=== PATIENT | male | born 1990 | race Caucasian/White ===

== ENCOUNTER 2018-11-03 15:38 | Emergency (ER) | payer OTHER ==
[2018-11-03] MEDS ORDERED: CEPHALEXIN 500 MG CAP PO ONE (16:39)
[2018-11-03] MEDS ORDERED: TDAP ADULT 0.5 ML INJ (BOOSTRIX) IM ONE (16:39)
--- NOTE | 2018-11-03 17:13 | EDPHY ---
H & P Stated Complaint: R farias lac cut on tree branch this afternoon Time Seen by Provider: 11/03/18 16:53 HPI/ROS: HPI: This is a 28-year-old male who presents with Chief Complaint: R farias lac cut on tree branch this afternoon the Location: Right lower leg Quality: Laceration Duration: Several hours prior to arrival Signs and Symptoms: No bleeding, no radiation, no numbness, no weakness, no tingling, no incontinence, no decreased range of motion, no swelling, +pain, no fever Timing: Acute Severity: [id number] Context: Patient reports that he was using a chain saw cutting trees to clear for his friend's house to be belt when the tree fell and hit another tree kicking backing hitting his right anterior lower leg. He reports that the tree "skipped up his leg." Patient reports that he did cut through his pants with the tree limb. Ambulatory without any deficits. Denies radiation, weakness, decreased range of motion, paresthesias. Unsure of tetanus status. Modifying Factors: Applied direct pressure to stop smoking. Comment: ROS: A comprehensive 10 system review of systems is otherwise negative aside from elements mentioned in the history of present illness. MEDICAL/SURGICAL/SOCIAL HISTORY: Medical history: Generally healthy. Does not take any regular medications. Surgical history: Denies Social history: Marijuana user. Never smoked. CONSTITUTIONAL: Extremely anxious adult white male who courses liberally. awake and alert, no obvious distress HEENT: Atraumatic and normocephalic. NECK: supple, no midline tenderness Cardiovascular: Normal S1/S2, regular rate, regular rhythm, without murmur rub or gallop. PULMONARY/CHEST: Symmetrical and nontender. Clear to auscultation bilaterally. Good air movement. No accessory muscle usage. ABDOMEN: Soft, nondistended, nontender EXTREMITIES: 2/2 pulses, strength 5/5, right anterior farias mid portion shows a cm by 1-2 cm vertical laceration with no active bleeding. Knee and ankle have full range of motion. Good plantar and dorsiflexion. DIP/PIP/MCP flexion/ extension intact with good light touch sensation. no deformities, no clubbing, no cyanosis or edema. NEUROLOGICAL: no focal neuro deficits. GCS 15. Light touch sensation intact. SKIN: Warm and dry, no erythema. no rash. Good capillary refill. Source: Patient Exam Limitations: No limitations - Personal History Current Tetanus/Diphtheria Vaccine: Unsure Current Tetanus Diphtheria and Acellular Pertussis (TDAP): Unsure - Medical/Surgical History Hx Asthma: No Hx Chronic Respiratory Disease: No Hx Diabetes: No Hx Cardiac Disease: No Hx Renal Disease: No Hx Cirrhosis: No Hx Alcoholism: No Hx HIV/AIDS: No Hx Splenectomy or Spleen Trauma: No Other PMH: denies - Social History Smoking Status: Never smoked Constitutional: Initial Vital Signs Temperature (C) 36.5 C 11/03/18 15:43 Heart Rate 91 11/03/18 15:43 Respiratory Rate 18 11/03/18 15:43 Blood Pressure 103/58 L 11/03/18 15:43 O2 Sat (%) 99 11/03/18 15:43 O2 Delivery Mode Room Air Allergies/Adverse Reactions: No Known Allergies Allergy (Unverified 11/03/18 15:43) Home Medications: Medication Instructions Recorded Cephalexin [Keflex (*)] 500 mg PO TID #21 cap 11/03/18 Medical Decision Making - Diagnostics Imaging Results: Imaging Impressions Tibia/Fibula X-Ray 11/03/18 16:39 Impression: Soft tissue laceration in the medial calf, with no radiopaque foreign body or acute osseous abnormality. Procedures: Procedure: Laceration repair. Verbal consent was obtained from the patient. The 8 cm by 2 cm, deep, simple laceration on the right anterior lower leg was anesthetized in the usual fashion using 12 mL of 1% lidocaine with epinephrine The wound was irrigated, draped and explored to its base with a gloved finger. There were no deep structures involved. No tendon injury was identified. The wound was repaired with #10, 4-0 Prolene in simple interrupted pattern. Good hemostasis was achieved and patient tolerated procedure relatively well. Xeroform and clean sterile dressing applied. The procedure was performed by myself. ED Course/Re-evaluation: Vital signs reviewed and stable upon arrival. Tetanus booster given Local anesthesia provided and copiously irrigated Right lower leg x-ray ordered and my read via bedside imaging shows no fracture but does show soft tissue injury Laceration closed with #10 nonabsorbable sutures Given Keflex due to dirty exposure. Xeroform and clean sterile dressing applied Verbal and written wound care instructions provided. No signs of neurovascular compromise/tenting of skin/compartment syndrome/ extremities and joints examined above and below area of concern and are neurovascularly intact. This patient was seen under the supervision of my secondary supervising physician. I evaluated care for this patient independently. Discussed this patient with Dr. Evans who did not see the patient. Differential Diagnosis: Differential diagnosis includes but is not limited to laceration, tendon injury , nerve injury, foreign body, fracture. - Data Points Medications Given: Discontinued Medications Cephalexin HCl (Keflex) 500 mg PO EDNOW ONE PRN Reason: Protocol Stop: 11/03/18 16:40 Last Admin: 11/03/18 16:46 Dose: 500 mg Diphtheria/Tetanus/Acell Pertussis (Boostrix) 0.5 ml IM .ONCE ONE Stop: 11/03/18 16:40 Last Admin: 11/03/18 16:46 Dose: 0.5 ml Departure - Departure Disposition: Home, Routine, Self-Care Clinical Impression: Laceration of right lower leg without complication Qualifiers: Encounter type: initial encounter Qualified Code(s): S81.811A - Laceration without foreign body, right lower leg, initial encounter Condition: Good Instructions: Care For Your Stitches (ED), Laceration (ED) Additional Instructions: Keep the dressing dry and in place for 48 hours. After 48 hours, you may remove the dressing; wash the site daily with mild soap and water; then pat dry. Take Tylenol 650 mg every 4 hours and/or Ibuprofen 600 mg every 8 hours with food as needed for pain. Apply ice for 30 minutes at a time; 2-3 times per day for the next 1-2 days. Take antibiotic as directed. Do not skip a dose. The x-rays obtained in the emergency department today demonstrate no evidence of an obvious fracture. Wound Care Follow-Up: Removal of sutures in [10-14] days. Suture removal is complimentary in uncomplicated cases. Infection or abnormal findings would require reevaluation by the MD. In that case, you may be billed. Referrals: [facility],. [Clinic] - As per Instructions Prescriptions: Cephalexin [Keflex (*)] 500 mg PO TID #21 cap
[2018-11-03 17:41] VITALS: BP 123/73
== END 2018-11-03 17:39 | disposition home or self-care (01) ==
PROC: 0HQKXZZ Repair Right Lower Leg Skin, External Approach (ICD-10-PCS; principal; 2018-11-03)
DX: S81.811A Laceration without foreign body, right lower leg, initial encounter (principal); W20.8XXA Other cause of strike by thrown, projected or falling object, initial encounter; Y93.H2 Activity, gardening and landscaping; Y92.007 Garden or yard of unspecified non-institutional (private) residence as the place of occurrence of the external cause; Z23 Encounter for immunization